=== PATIENT | female | born 1965 | race Two or more races ===

== ENCOUNTER 2018-12-11 16:02 | Emergency (ER) | payer BC ==
[~2018-12-11] VITALS: Ht 157.5 cm; Wt 64.9 kg
[2018-12-11 17:06] LABS: Basophils # (auto) 0 uL; Basophils % (auto) 0.6 % (0.0-2.0); Eosinophils # (auto) 0.1 uL; Eosinophils % (auto) 1.5 % (0.0-7.0); Hematocrit 41.7 % (36.0-46.0); Lymphocytes # (auto) 1.4 uL; Lymphocytes % (auto) 24.8 % (10.0-50.0); Mean Corpuscular Hgb Conc. 33.5 g/dL (32.0-36.0); Mean Corpuscular Volume 95.6 fL (80.0-100.0); Monocytes # (auto) 0.7 uL; Monocytes % (auto) 11.4 % (0.0-12.0); Neutrophils # (auto) 3.6 uL; Neutrophils % (auto) 61.7 % (37.0-80.0); Nucleated Red Blood Cells % 0.1 %; Platelet Count (auto) 337 10^3/uL (140-450); Red Blood Cells 4.37 10^6/uL (4.0-5.20); Red Cell Distribution Width 14.2 % (11.8-14.3); White Blood Cell 5.8 10^3/uL (4.4-10.8)
[2018-12-11 17:21] LABS: Albumin 3.8 g/dL (3.4-5.0); BUN/Creatinine Ratio 15.7; Calcium 8.8 mg/dL (8.5-10.1); Potassium 3.2 mmol/L (3.5-5.1)
[2018-12-11 17:23] LABS: Bilirubin, Total 0.4 mg/dL (0.2-1.0); Total Protein 7.5 g/dL (6.4-8.2)
[2018-12-11 20:24] VITALS: BP 128/69
== END 2018-12-11 20:23 | disposition home or self-care (01) ==
LOC: ER 16:17
DX: K91.872 Postprocedural seroma of a digestive system organ or structure following a digestive system procedure (principal)
CPT/HCPCS: 36415; 74176; 80053; 85025

== ENCOUNTER 2021-10-09 09:21 | Emergency (ER) | payer BC ==
[~2021-10-09] VITALS: Ht 160 cm; Wt 65.8 kg
[2021-10-09 11:08] VITALS: BP 152/78
== END 2021-10-09 11:11 | disposition home or self-care (01) ==
LOC: ER 09:21
DX: H11.31 Conjunctival hemorrhage, right eye (principal); I10 Essential (primary) hypertension
CPT/HCPCS: 70450; 93005